=== PATIENT | female | born 1950 | race Hispanic/Latino ===

== ENCOUNTER → 2023-02-21 | Outpatient (CLI) | payer MEDICARE | LOC: MAMMO 12:55 | PROVIDERS: ATTEND Internal Medicine | DX: Z12.31 Encounter for screening mammogram for malignant neoplasm of breast (principal) | CPT/HCPCS: 77067 ==

== ENCOUNTER → 2025-06-03 | Outpatient (REF) | payer MEDICARE, OTHER | LOC: MAMMO 10:06 | PROVIDERS: ATTEND Internal Medicine | DX: Z12.31 Encounter for screening mammogram for malignant neoplasm of breast (principal); M81.0 Age-related osteoporosis without current pathological fracture | CPT/HCPCS: 77067; 77080 ==